=== PATIENT | male | born 2000 | race Caucasian/White ===

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

== ENCOUNTER 2021-03-26 23:24 | Emergency (ER) | payer MEDICAID, SELFPAY ==
[2021-03-26 23:24] VITALS: BP 112/63; PULSE 53; RESP 16; TEMP 36.1; O2SAT 99
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
[2021-03-27] MEDS: Doxycycline 100 MG CAPSULE PO (00:14)
== END 2021-03-27 00:15 | disposition home or self-care (01) ==
LOC: ED 03-27 00:05
PROVIDERS: Emergency Provider Emergency Medicine
DX: L08.0 Pyoderma (principal); S60.221A Contusion of right hand, initial encounter; F17.210 Nicotine dependence, cigarettes, uncomplicated; X58.XXXA Exposure to other specified factors, initial encounter; Y93.89 Activity, other specified; Y92.89 Other specified places as the place of occurrence of the external cause; Y99.8 Other external cause status
CPT/HCPCS: 73130; 99283

== ENCOUNTER 2021-10-20 15:39 | Emergency (ER) | payer MEDICAID, SELFPAY ==
[2021-10-20 15:40] VITALS: BP 119/94; PULSE 77; RESP 16; TEMP 36.2; O2SAT 98; BMI 21.5
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
--- NOTE | 2021-10-20 16:17 | CM.ED ---
SW Note Referral Source: Case Find Referral Reason: No Primary Care Physician (PCP) SW reviewed chart and noted that patient has no PCP. SW provided patient with list of [facility] and [facility] Physician List for reference. SW also provided patient with handout ?Where to go When?. No other issues or concerns voiced at this time. SW remains available for any additional needs. Plan: Provided patient with PCP information Rosenda LYNNE
[2021-10-20] MEDS: Ibuprofen 600 MG Tablet PO (16:22)
== END 2021-10-20 16:52 | disposition home or self-care (01) ==
PROVIDERS: Emergency Provider Emergency Medicine; Visit Provider Emergency Medicine
DX: S01.81XA Laceration without foreign body of other part of head, initial encounter (principal); S05.12XA Contusion of eyeball and orbital tissues, left eye, initial encounter; Y04.8XXA Assault by other bodily force, initial encounter; F17.210 Nicotine dependence, cigarettes, uncomplicated
CPT/HCPCS: 12013; 99282

== ENCOUNTER 2021-10-23 20:10 | Emergency (ER) | payer MEDICAID, SELFPAY ==
[2021-10-23 20:11] VITALS: BP 112/65; PULSE 64; RESP 18; TEMP 36.3; O2SAT 98; BMI 21.5
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
--- NOTE | 2021-10-23 20:38 | CT_ITS ---
STUDY: CT ORBITS WITHOUT CONTRAST REASON FOR EXAM: Male, 21 years old. Trauma RADIATION DOSAGE (If Supplied By Facility): CTDIvol = ( 29.58 ) mGy, DLP = ( 437.27 ) mGycm TECHNIQUE: The patient was scanned in a multi detector CT scanner. Transaxial imaging was performed without the administration of intravenous contrast material. Sagittal and coronal images were reconstructed. Individualized dose optimization techniques were used for this CT. COMPARISON: None. FINDINGS: Normal globes. Normal intraconal spaces. Normal optic nerve sheath complex. Normal bilateral extraocular muscles. Normal lacrimal glands. There is lucency with nondisplaced fracture of the floor of the left orbit. Normal bilateral maxillary bones. Normal bilateral frontozygomatic arches. Normal bilateral zygomatic temporal arches. Normal frontal sinus. Normal ethmoidal sinuses. There is mucosal thickening and fluid in the left maxillary sinus. Normal sphenoid sinuses. Normal soft tissue structures. CT/Orb Sella Post Fossa Ear w/o IMPRESSION: Nondisplaced fracture of the floor left orbit. Electronically Signed: Myles Palmer MD at 21:04 EST Reading Location ID and State: [facility], later [facility] / [place] , Service support ,
== END 2021-10-23 21:26 | disposition home or self-care (01) ==
PROVIDERS: Emergency Provider Emergency Medicine; Visit Provider Emergency Medicine
DX: S02.32XA Fracture of orbital floor, left side, initial encounter for closed fracture (principal); F17.210 Nicotine dependence, cigarettes, uncomplicated; Y04.8XXA Assault by other bodily force, initial encounter; Y93.9 Activity, unspecified; Y92.9 Unspecified place or not applicable
CPT/HCPCS: 70480; 99282

== ENCOUNTER 2021-10-26 18:58 | Emergency (ER) | payer MEDICAID, SELFPAY ==
[2021-10-26 18:59] VITALS: BP 125/71; PULSE 74; RESP 14; TEMP 36.7; O2SAT 98; BMI 19.1
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
[2021-10-26 19:31] VITALS: BP 125/71; PULSE 74; RESP 14; O2SAT 98
== END 2021-10-26 19:32 | disposition home or self-care (01) ==
PROVIDERS: Emergency Provider Emergency Medicine; Visit Provider Emergency Medicine
DX: Z48.02 Encounter for removal of sutures (principal); F17.210 Nicotine dependence, cigarettes, uncomplicated
CPT/HCPCS: 99282

== ENCOUNTER 2022-03-19 03:04 | Emergency (ER) | payer MEDICAID, SELFPAY ==
[2022-03-19 03:05] VITALS: BP 115/83; PULSE 68; RESP 15; TEMP 36.7; O2SAT 98; BMI 18.6
--- NOTE | 2022-03-19 03:32 | EX.ED.DYSGE1 ---
HPI History of Present Illness Chief Complaint: Substance Abuse Narrative Narrative: Patient is a 22-year-old male with no significant medical or surgical history. He does state that he typically smokes marijuana daily. Father states that his birthday was the other day and he had friends over. He states after the friends left the patient had a sudden change in his mental status. He states he is concerned that the marijuana he was smoking with them was laced. He states that the patient still has some of that marijuana left and also smoked today and he noticed similar change in mental status after using. Therefore father has concerned about a underlying coat drug ingestion which could be causing issues and patient was brought in for evaluation [facility] Medical History Seizure Home Medications NK 03/19/22 [History Last Taken Unknown] Allergy/AdvReac Type Severity Reaction Status Date / Time latex AdvReac Other Verified 03/19/22 03:08 Social History household members: adopted family Smoking Status: Current every day smoker tobacco type: cigarettes alcohol intake: current alcohol intake frequency: other substance use type: does not use ROS ROS ED Constitutional Constitutional ED: Denies chills or fever(s) ENT ENT ED: Denies sore throat Cardiovascular Cardiovascular: Denies chest pain Respiratory/Chest Respiratory/Chest: Denies cough or dyspnea Gastrointestinal Gastrointestinal: Denies abdominal pain, diarrhea, nausea or vomiting Genitourinary Genitourinary ED: Denies dysuria Musculoskeletal Musculoskeletal: Denies myalgias Integumentary Denies rash Neurologic Neurologic: Denies headache(s) Hematologic/Lymphatic Hematologic/Lymphatic: Denies easy bleeding or easy bruising EXAM Physical Exam Const Vital Signs: 03/19/22 03:05 Temperature 98.0 F Temperature Source Temporal Pulse Rate 68 Respiratory Rate 15 Blood Pressure 115/83 H Blood Pressure Mean 93 Pulse Ox 98 Oxygen Delivery Method Room Air Positive well nourished and well developed General Appearance ED: well developed Eyes EOMs intact bilaterally Eyes Narrative: Pupils are dilated and slightly sluggish to respond with mild scleral injection noted Neck supple Neck Narrative: No meningeal signs Resp normal respiratory effort and clear to auscultation bilaterally Cardio regular rate and regular rhythm Extremity normal to inspection Neuro oriented x3 and CN's II-XII intact bilaterally Sensorium / Orientation: alert Psych Psych Narrative: Patient has a flat affect Skin no rashes or lesions noted MDM MDM MDM Narrative Medical decision making narrative: Patient presented to the ER with stable vitals and a normal neurologic exam. He had slightly dilated pupils are sluggish to respond with mild injection consistent with marijuana use. As father had concerned about a contaminant ingestion I did elect to perform a urine drug screen. This was only positive for the marijuana. On reevaluation the patient is resting comfortably and remains in no acute distress. Therefore as secondary drug use is not present based on the tox screen and patient's vitals are stable he is otherwise safe for discharge Lab Data Attestation: I reviewed the patient's lab results. Labs: Laboratory Results - last 24 hr 03/19/22 03:53 Urine Opiates Screen NEGATIVE Urine Methadone Screen NEGATIVE Ur Barbiturates Screen NEGATIVE Ur Phencyclidine Scrn NEGATIVE Ur Amphetamines Screen NEGATIVE MDMA (Ecstasy) Screen NEGATIVE U Benzodiazepines Scrn NEGATIVE Urine Cocaine Screen NEGATIVE U Cannabinoids Screen POSITIVE H Ur Drug Screen Comment Discharge Plan Triage Chief Complaint: Substance Abuse ED Provider: Kris Alejandro Dx/Rx/DC Orders Clinical Impression: Cannabis use disorder Instructions: ED Marijuana Abuse Prescriptions: No Action NK Primary Care Provider: Care Physician,No Primary Referrals: Care Physician,No Primary [Primary Care Provider] - Renee Bui MD [Med Staff - Battery Inspector] - 1 Week if not improving Disposition Disposition: Home, Self Care
[2022-03-19 04:51] LABS: Amphetamine Urine VISTA NEGATIVE (<1000 ng/mL); Barbiturate Urine VISTA NEGATIVE (< 200 ng/mL); Benzodiazepine Urine VISTA NEGATIVE (< 200 ng/mL); Cocaine Urine VISTA NEGATIVE (< 300 ng/mL); Ecstacy Urine VISTA NEGATIVE (< 500 ng/mL); Methadone Urine VISTA NEGATIVE (< 300 ng/mL); PCP Urine VISTA NEGATIVE (< 25 ng/mL); THC Urine VISTA POSITIVE (< 50 ng/mL); Vista UDS pH Range 5
[2022-03-19 05:00] VITALS: BP 114/74; PULSE 75; RESP 16; O2SAT 97
== END 2022-03-19 05:00 | disposition home or self-care (01) ==
PROVIDERS: Emergency Provider Emergency Medicine; Visit Provider Emergency Medicine
DX: R41.82 Altered mental status, unspecified (principal); F12.90 Cannabis use, unspecified, uncomplicated; F17.210 Nicotine dependence, cigarettes, uncomplicated
CPT/HCPCS: 80307; 99282

== ENCOUNTER 2023-07-05 21:34 | Emergency (ER) | payer SELFPAY ==
[2023-07-05 21:36] VITALS: BP 99/67; PULSE 94; RESP 18; TEMP 36.6; O2SAT 98; BMI 17.8
[2023-07-05] MEDS: 0.9% Normal Saline (1000mL) 1,000 ML 999 ML IV (22:37)
[2023-07-05] MEDS: Haloperidol Lactate 5 MG/ML Vial IV (22:38)
[2023-07-05 22:47] LABS: Absolute Lymphocyte Count 1.35 X10^3/uL (0.83-4.51); Absolute Neutrophil Count 5.6 X10^3/uL (2.0-7.7); Basophil# 0.03 X10^3/uL; Basophil% 0.4 % (0-1); Eosinophil# 0.07 X10^3/uL; Eosinophils% 0.8 % (0-5); Hematocrit 43.5 % (40-54); Hemoglobin 14.7 g/dL (13.0-16.5); Lymphocyte # 1.35 X10^3/ul (0.83-4.51); Lymphocyte % 15.8 % (19-41); Mean Corp Hgb Conc 33.8 g/dL (32-36); Mean Corpuscular Hgb 28.9 pg (27.0-32.0); Mean Corpuscular Volume 85.6 fL (80-94); Mean Platelet Vol. 10.3 fl (6.2-12.0); Monocyte# 1.43 X10^3/uL; Monocyte% 16.8 % (0-10); NRBC Flagged by Analyzer 0 % (0-5); Neutrophil # 5.64 X10^3/uL (2.7-7.7); Neutrophil % 66.1 % (47-70); Platelet Count 231 K/mm3 (150-450); RBC Distribution Width CV 11.5 % (11.6-14.6); RBC Distribution Width SD 36.2 fl (35.1-43.9); Red Blood Count 5.08 M/mm3 (4.6-6.2); White Blood Count 8.5 K/mm3 (4.4-11.0)
--- NOTE | 2023-07-05 22:51 | EDS_ITS ---
HPI History of Present Illness Chief Complaint: Abd Pain Informant: patient Narrative Narrative: Patient is a 23-year-old male with past medical history of of seizure. He states for the past week he has felt nauseous and has had bouts of vomiting especially if he eats or drinks. He states his sister was recently sick with similar symptoms however she had over hers in a few days. He reports he is having some upper abdominal pain associated with this but denies any loose stool or diarrhea. He also reports that he uses marijuana daily. He states that this evening he had to leave work based on his symptoms and secondary to this he was advised to come to the hospital for evaluation [facility] Medical History Seizure Home Medications ondansetron 4 mg disintegrating tablet 4 mg PO TID PRN nausea and vomiting #21 tabs 07/05/23 [Rx Last Taken Unknown] Allergy/AdvReac Type Severity Reaction Status Date / Time latex AdvReac Other Verified 07/05/23 21:39 Social History household members: adopted family Smoking Status: Current every day smoker tobacco type: cigarettes alcohol intake: current alcohol intake frequency: other substance use type: does not use ROS ROS ED Constitutional Constitutional ED: Reports chills, fever(s) and subjective Eyes Eyes: Denies change in vision ENT ENT ED: Denies rhinorrhea or sore throat Cardiovascular Cardiovascular: Denies chest pain Respiratory/Chest Respiratory/Chest: Denies cough or dyspnea Gastrointestinal Gastrointestinal: Reports abdominal pain, nausea and vomiting; Denies constipation or diarrhea Genitourinary Genitourinary ED: Denies dysuria Musculoskeletal Musculoskeletal: Denies myalgias Integumentary Denies rash Neurologic Neurologic: Denies headache(s) Hematologic/Lymphatic Hematologic/Lymphatic: Denies easy bleeding or easy bruising EXAM Physical Exam Const Vital Signs: 07/05/23 21:36 Temperature 97.9 F Temperature Source Temporal Pulse Rate 94 Respiratory Rate 18 Blood Pressure 99/67 Blood Pressure Mean 77 Pulse Ox 98 Oxygen Delivery Method Room Air Positive well nourished and well developed General Appearance ED: well developed; Negative for pallor HEENT Reports moist mucous membranes HEENT Narrative: No signs of infection noted in the posterior pharynx Eyes PERRL and EOMs intact bilaterally General Eye ED: Negative for scleral icterus Neck supple Neck Narrative: No nuchal rigidity or meningeal signs Resp normal respiratory effort and clear to auscultation bilaterally Cardio regular rate and regular rhythm GI non-distended GI Narrative: Abdomen is soft and nondistended with normal active bowel sounds. There is pain on palpation in the midepigastric and right upper quadrant region without voluntary guarding or rigidity. Negative heel strike psoas and obturator signs Auscultation: normoactive bowel sounds Palpation: soft Extremity normal to inspection Neuro oriented x3, CN's II-XII intact bilaterally and no sensory deficits noted Sensorium / Orientation: alert Motor Exam: strength 5/5 throughout Psych mental status grossly normal Skin no rashes or lesions noted and skin turgor normal General Skin Exam: Negative for jaundice or pallor MDM MDM MDM Narrative Medical decision making narrative: Patient presented to the ER with stable vitals but reported recurrent episodes of nausea and vomiting over the past week. Differential diagnosis is for acute viral infection such as [place] or rotavirus versus cannabis hyperemesis syndrome as he does report using marijuana daily versus electrolyte abnormality or acute kidney injury secondary to dehydration. There is also concern for potential pancreatitis versus biliary colic or acute cholecystitis based on his upper abdominal pain. Basic laboratory studies were obtained which revealed no clinically significant finding. Patient was given 1 L of fluid and treated with Haldol and he had no bouts of vomiting while in the ER and he reported resolution of his pain. Therefore this time I do not feel there is need for admission or further work-up and patient is safe for discharge History & Record Review Discussion w/independent historian: Patient Lab Data Attestation: I reviewed the patient's lab results. Labs: Laboratory Results - last 24 hr 07/05/23 22:40 WBC 8.5 RBC 5.08 Hgb 14.7 Hct 43.5 MCV 85.6 MCH 28.9 MCHC 33.8 RDW Std Deviation 36.2 RDW Coeff of Deshaun 11.5 L Plt Count 231 MPV 10.3 Immature Gran % (Auto) 0.100 Neut % (Auto) 66.1 Lymph % (Auto) 15.8 L [place] % (Auto) 16.8 H Eos % (Auto) 0.8 Baso % (Auto) 0.4 Absolute Neuts (auto) 5.6 Absolute Lymphs (auto) 1.35 Nucleated RBC % 0 Sodium 138 Potassium 3.7 Chloride 104 Carbon Dioxide 31.0 Anion Gap 3 L BUN 11 Creatinine 0.90 Estim Creat Clear Calc 101.91 Est GFR (MDRD) Af Amer 134 Est GFR (MDRD) Non-Af 111 BUN/Creatinine Ratio 12.2 Glucose 87 Calcium 8.8 Total Bilirubin 0.60 Direct Bilirubin 0.18 AST 17 ALT 18 Alkaline Phosphatase 53 Total Protein 8.1 Albumin 4.0 Globulin 4.1 Lipase 15 Discharge Plan Triage Chief Complaint: Abd Pain ED Provider: Kris Alejandro Dx/Rx/DC Orders Clinical Impression: Nonspecific abdominal pain, Nausea and vomiting, Cannabis use disorder Instructions: Abdominal Pain, ED Vomiting (Adult) Prescriptions: New ondansetron 4 mg tablet,disintegrating 4 mg PO TID PRN (Reason: nausea and vomiting) Qty: 21 0RF Stand Alone Forms: ED Work / School Excuse Primary Care Provider: Care Physician,No Primary Referrals: Dat Calderon MD [STAFF PHYSICIAN] - Care Physician,No Primary [Primary Care Provider] - Activity Restrictions/Additional Instructions: Please keep yourself well-hydrated and use the prescribed Zofran to control any further bouts of nausea or vomiting. Return to the ER should you have any further concerns or worsening of symptoms Disposition Disposition: Home, Self Care
[2023-07-05 23:04] LABS: AST(SGOT) 17 U/L (15-37); Alanine Aminotransfer ALT/SGPT 18 U/L (16-61); Alkaline Phosphatase 53 U/L (45-117); Anion Gap 3 (5-15); BUN 11 mg/dL (7-18); BUN/Creat Ratio 12.2 RATIO (10-20); Bilirubin, Direct 0.18 mg/dL (0.00-0.30); Calcium,Total 8.8 mg/dL (8.5-10.1); Chloride 104 mmol/L (98-107); EST Glomerular Filtration Rate 111 mL/min (>60); Est Glom Filt Rate - Afr Amer 134 mL/min (>60); Estimated Creatinine Clearance 101.91 ml/min; Globulin 4.1 g/dL (2.2-4.2); Glucose 87 mg/dL (74-106); Lipase 15 U/L (13-75); Potassium 3.7 mmol/L (3.5-5.1); Protein, Total 8.1 g/dL (6.4-8.2); Sodium Level 138 mmol/L (136-145)
[2023-07-05 23:35] VITALS: RESP 18
== END 2023-07-06 00:05 | disposition home or self-care (01) ==
PROVIDERS: Emergency Provider Emergency Medicine; Visit Provider Emergency Medicine
DX: R10.9 Unspecified abdominal pain (principal); R11.2 Nausea with vomiting, unspecified; F12.90 Cannabis use, unspecified, uncomplicated; F17.210 Nicotine dependence, cigarettes, uncomplicated
CPT/HCPCS: 80048; 80076; 83690; 85025; 96374; 99283

== ENCOUNTER 2024-04-10 11:55 | Emergency (ER) | payer SELFPAY ==
[2024-04-10 11:56] VITALS: BP 129/96; PULSE 73; RESP 18; TEMP 36.4; O2SAT 98; BMI 20.3
--- NOTE | 2024-04-10 15:49 | EDS_ITS ---
HPI History of Present Illness Chief Complaint: Dental Informant: patient Narrative Narrative: 24-year-old male presenting to the emergency room with left lower dental pain. Patient states he began to have pain yesterday. He states that tooth seem to break apart while eating. He notes sensitivity to his tooth. He denies any jaw swelling. He does not have a dentist appointment scheduled. He states I wonder if I have an infection. No reported fevers. PFSH PFS Medical History Seizure Home Medications ?Medication ?Instructions ?Recorded ?Last Taken ?Type ondansetron 4 mg disintegrating 4 mg PO TID PRN nausea and 07/05/23 Unknown Rx tablet vomiting #21 tabs ibuprofen 600 mg tablet 600 mg PO Q6H PRN PRN pain #20 04/10/24 Unknown Rx TABLETS penicillin V potassium 500 mg 500 mg PO 4X/DAY #40 tabs 04/10/24 Unknown Rx tablet Allergy/AdvReac Type Severity Reaction Status Date / Time latex AdvReac Other Verified 04/10/24 11:56 Social History household members: adopted family Smoking Status: Current every day smoker tobacco type: cigarettes alcohol intake: current alcohol intake frequency: other substance use type: does not use ROS ROS ED Constitutional Constitutional ED: Denies chills, fever(s) or weight loss Eyes Eyes: Denies change in vision or diplopia ENT ENT ED: Reports other Details: Dental pain ; Denies ear pain, rhinorrhea or sore throat Cardiovascular Cardiovascular: Denies chest pain, orthopnea, palpitations or racing heartbeat Respiratory/Chest Respiratory/Chest: Denies cough, dyspnea or orthopnea Gastrointestinal Gastrointestinal: Denies abdominal pain, diarrhea, nausea or vomiting Genitourinary Genitourinary ED: Denies dysuria, hematuria or urinary frequency Musculoskeletal Musculoskeletal: Denies arthralgias or myalgias Integumentary Denies abscess or rash Neurologic Neurologic: Denies headache(s) or weakness Psychiatric Psychiatric: Denies anxiety, depression, suicidal ideation or suicidal thoughts Endocrine Endocrinology: Denies polydipsia, polyphagia or polyuria Allergic/Immunologic Allergic/Immunologic ED: Denies mouth swelling, tongue swelling or urticaria EXAM Physical Exam Const Vital Signs: 04/10/24 11:56 Temperature 97.5 F L Temperature Source Temporal Pulse Rate 73 Respiratory Rate 18 Blood Pressure 129/96 H Blood Pressure Mean 107 Pulse Ox 98 Oxygen Delivery Method Room Air Positive well nourished and well developed General Appearance ED: well developed HEENT Reports normocephalic, head/scalp atraumatic and moist mucous membranes HEENT Narrative: There is a focally severely decayed left lower posterior most molar. I do not appreciate any gum swelling or obvious abscess. There is no swelling along the mandible or overlying erythema. There is no trismus. Floor the mouth is soft. Handling secretions normally voice is normal. Tooth is tender to palpation. Eyes PERRL and EOMs intact bilaterally Neck no lymphadenopathy, supple and no JVD Resp normal respiratory effort and clear to auscultation bilaterally Cardio regular rate, regular rhythm and no murmurs GI normal to inspection, nondistended, normoactive bowel sounds and non-tender Palpation: soft Back/Spine no CVA tenderness and normal ROM Extremity normal to inspection General Extremety ED: Negative for edema General Extremity: Negative for edema Neuro oriented x3 and CN's II-XII intact bilaterally Sensorium / Orientation: alert Motor Exam: strength 5/5 throughout Psych mental status grossly normal Mood & Affect: Negative for depressed or tearful Skin no rashes or lesions noted and no wounds MDM MDM MDM Narrative Medical decision making narrative: Differential diagnosis includes but not limited to gingivitis ANUG pulpitis dental abscess dental caries dental fracture Patient was started on anti-inflammatories as well as penicillin. I related to his request dental follow-up as soon as possible. Return if worsening or concerns History & Record Review Discussion w/independent historian: Patient Discharge Plan Triage Chief Complaint: Dental ED Provider: Paul Pinzon Dx/Rx/DC Orders Clinical Impression: Dental caries, Pain, dental Instructions: ED Dental Pain Prescriptions: New penicillin V potassium 500 mg tablet 500 mg PO 4X/DAY Qty: 40 0RF ibuprofen 600 mg tablet 600 mg PO Q6H PRN PRN (Reason: pain) Qty: 20 0RF No Action ondansetron 4 mg tablet,disintegrating 4 mg PO TID PRN (Reason: nausea and vomiting) Qty: 21 0RF Primary Care Provider: Care Physician,No Primary Referrals: Care Physician,No Primary [Primary Care Provider] - Activity Restrictions/Additional Instructions: He need to see a dentist for definitive care to soon as possible. Print Language: Marshallese Disposition Disposition: Home, Self Care
[2024-04-10 15:55] VITALS: PULSE 50; RESP 16; O2SAT 98
[2024-04-10 16:03] VITALS: BP 129/96; PULSE 50; RESP 16; TEMP 36.4; O2SAT 98
== END 2024-04-10 16:08 | disposition home or self-care (01) ==
LOC: ED 15:54
PROVIDERS: Emergency Provider Emergency Medicine; Visit Provider Emergency Medicine
DX: K02.9 Dental caries, unspecified (principal); K08.89 Other specified disorders of teeth and supporting structures; F17.210 Nicotine dependence, cigarettes, uncomplicated
CPT/HCPCS: 99282